=== PATIENT | male | born 1970 | race Caucasian/White ===

== ENCOUNTER 2016-05-24 09:25 | Emergency (ER) | payer BC ==
[~2016-05-24] VITALS: Ht 167.6 cm; Wt 108.5 kg
[2016-05-24 09:29] VITALS: TEMP 36.8; Ht 167.6 cm; Wt 108.5 kg
--- NOTE | 2016-05-24 09:53 | EMERGENCY ROOM VISIT NOTE ---
History Report prepared by Mason: Jamaal River Under the Supervision of: Dr. Dexter Lombardi M.D. First contact with patient: 09:38 Chief Complaint: REFERRED BY DOCTOR Stated Complaint: COUGH THAT HAS CHEST RESTRICTIONS History of Present Illness The patient is a 46 year old male who presents to the Emergency Room with complaints of an intermittent cough that started 3 to 4 months ago. Currently, he states that he feels fine. He says he only gets the cough when lying down, and he states that his cough "feels restricted" in his chest. The patient's cough is nonproductive. He went to [facility] today and had a 2-view chest x- ray done, which showed a pleural effusion. The patient was then sent here. He denies any chest pain, shortness of breath, or swelling to his legs. He has no history of heart problems and he does not take any daily medications. The patient denies any recent trauma or injuries, or any cold symptoms recently. He does have a history of benign tumors and he has had a cholecystectomy. The patient does not smoke. Source of History: patient Onset: 3 to 4 months ago Position: other (global - cough) Timing: intermittent Modifying Factors (Worsening): other (only when lying down) Associated Symptoms: No SOB, No chest pain Note: Associated symptoms: Cough "feels restricted" in chest. Denies leg swelling. Review of Systems See HPI for pertinent positives & negatives. A total of 10 systems reviewed and were otherwise negative. Past Medical & Surgical Medical Problems: (1) Benign tumor Surgical Problems: (1) History of cholecystectomy Family History No pertinent family history Social History Smoking Status: Never Smoker Marital Status: Occupation Status: employed Current/Historical Medications No Active Prescriptions or Reported Meds Allergies Coded Allergies: No Known Allergies (Unverified , 05/24/16) Physical Exam Vital Signs Date Time Temp Pulse Resp B/P Pulse Ox O2 Delivery O2 Flow Rate FiO2 05/24/16 11:10 62 18 118/74 94 05/24/16 09:29 36.8 64 16 126/90 97 Room Air Physical Exam GENERAL: Patient is well appearing and in no acute distress. HEENT: No acute trauma, normocephalic atraumatic, mucous membranes moist, no nasal congestion, no scleral icterus. NECK: No stridor, no adenopathy, no meningismus, trachea is midline. LUNGS: No dyspnea. Clear to auscultation and equal bilaterally. No wheeze, no rhonchi. HEART: Regular rate and rhythm. No murmurs, rubs, gallops appreciated. ABDOMEN: Soft, nontender, bowel sounds positive, no masses appreciated, no peritonitis. BACK: No midline tenderness, no CVA tenderness EXTREMITIES: Normal motion all extremities, no cyanosis. Trace edema of bilateral ankles. NEUROLOGIC: Alert and oriented, no acute motor or sensory deficits, no focal weakness, cranial nerves grossly intact. SKIN: No rash, no jaundice, no diaphoresis. Medical Decision & Procedures ER Provider Diagnostic Interpretation: X ray results are stated below per my interpretation and the radiologist's interpretation. CHEST 2 VIEWS ROUTINE CLINICAL HISTORY: Shortness of breath. Reported left pleural effusion. COMPARISON STUDY: Chest radiograph March 20, 2013. FINDINGS: Surgical clips project over the upper chest and mediastinum. There are cholecystectomy clips. No pneumothorax or pleural effusion is present. Cardiac size is at the upper limits of normal. There is no evidence of pulmonary edema. No consolidation is identified. The appearance of the chest is unchanged. IMPRESSION: No acute cardiopulmonary findings. No change in appearance of the chest. Electronically signed by: Francisco Shah M.D. 05/24/2016 10:37 AM Dictated Date/Time: 05/24/2016 10:36 AM ED Course 0940: The patient was evaluated in room A9B. A complete history and physical exam was performed. 0950: I reevaluated the patient and he agrees to a repeat chest x-ray. 1048: I reevaluated the patient and he is resting comfortably. The patient verbally expressed understanding and agreement of the treatment plan. The patient will be discharged. Medical Decision Pleasant 46 yr old male notes periodic cough with laying flat so went by Urgent care where they did CXR and note he had left pleural effusion. Asymptomatic here and in no distress. Exam is benign and patient feeling well. CXR here is normal without effusion. Unclear why read as effusion at Urgent Care though unable to open their CXR. Discussed doing further workup for his cough at night though he notes he will get PCP and follow up. Declines help with setting this up. Stable and in no distress at discharge. Impression Primary Impression: Encounter for routine chest x-ray Scribe Attestation The scribe's documentation has been prepared under my direction and personally reviewed by me in its entirety. I confirm that the note above accurately reflects all work, treatment, procedures, and medical decision making performed by me. Departure Information Dispostion Home / Self-Care Prescriptions No Active Prescriptions or Reported Meds Forms HOME CARE DOCUMENTATION FORM, IMPORTANT VISIT INFORMATION, WORK / SCHOOL INSTRUCTIONS Patient Instructions ED Dyspnea Shortness of Breath, My [facility]
--- NOTE | 2016-05-24 10:38 | DIAGNOSTIC IMAGING REPORT ---
CHEST 2 VIEWS ROUTINE CLINICAL HISTORY: Shortness of breath. Reported left pleural effusion. COMPARISON STUDY: Chest radiograph March 20, 2013. FINDINGS: Surgical clips project over the upper chest and mediastinum. There are cholecystectomy clips. No pneumothorax or pleural effusion is present. Cardiac size is at the upper limits of normal. There is no evidence of pulmonary edema. No consolidation is identified. The appearance of the chest is unchanged. IMPRESSION: No acute cardiopulmonary findings. No change in appearance of the chest. Electronically signed by: Francisco Shah M.D. 05/24/2016 10:37 AM Dictated Date/Time: 05/24/2016 10:36 AM
[2016-05-24 11:10] VITALS: BP 118/74; PULSE 62; O2SAT 94
== END 2016-05-24 11:11 | disposition home or self-care (01) ==
LOC: C.EDB 09:27 → C.EDA 11:11
DX: Z00.00 Encounter for general adult medical examination without abnormal findings (principal); Z86.018 Personal history of other benign neoplasm; Z90.49 Acquired absence of other specified parts of digestive tract